=== PATIENT | male | born 1970 | race Hispanic/Latino ===

== ENCOUNTER 2020-08-21 06:55 | Emergency (ER) | payer SELFPAY ==
[~2020-08-21] VITALS: Ht 165.1 cm; Wt 79.0 kg
[2020-08-21 08:04] LABS: HEMATOCRIT 42.3 % (39.0-50.0); HEMOGLOBIN 14.2 g/dl (14.0-18.0); IMMATURE GRANULOCYTES 0.5 % (0.0-5.0); MEAN CELL VOLUME 82.8 fL CALC (80.0-100.0); MEAN CORPUSCULAR HGB 27.8 pG CALC (26.0-32.0); MEAN CORPUSCULAR HGB CONC 33.6 g/dL CAL (32.0-36.0); RED BLOOD COUNT 5.11 mill/uL (4.70-6.10); RED CELL DISTRI WIDTH 13.2 % (11.5-15.5)
[2020-08-21 08:19] LABS: ALBUMIN 4.2 g/dL (3.2-5.0); ALKALINE PHOSPHATASE 64 u/l (38-126); ANION GAP 13 (6-22 (CALC)); BILIRUBIN, TOTAL 0.9 mg/dL (0.0-1.4); BUN 13 mg/dL (9-20); BUN/CREATININE RATIO 15 (12-20 (CALC)); CARBON DIOXIDE 27 mmol/l (22-30); CHLORIDE 98 mmol/l (95-108); CREATININE 0.9 mg/dL (0.7-1.3); GFR > 60 ML/MIN (>=60 (CALC)); GFR FOR AFR.AMER. > 60 ML/MIN (>=60 (CALC)); POTASSIUM 4.1 mmol/l (3.5-5.1); SGOT/AST 51 u/l (17-59); SODIUM 134 mmol/l (137-146); TOTAL PROTEIN 7.1 g/dL (6.3-8.2)
[2020-08-21 09:28] VITALS: BP 151/77
== END 2020-08-21 09:30 | disposition home or self-care (01) | DRG 179 ==
LOC: ED 06:55
PROVIDERS: Family Medicine
DX: U07.1 COVID-19 (principal); R52 Pain, unspecified

== ENCOUNTER 2022-05-31 09:26 | Emergency (ER) | payer SELFPAY ==
[~2022-05-31] VITALS: Ht 165.1 cm; Wt 73.0 kg
[2022-05-31] VITALS (20 sets, daily range): BP systolic 136–161; BP diastolic 82–96
[2022-05-31] MEDS ORDERED: PROTONIX40 M2 PO (09:45)
[2022-05-31] MEDS ORDERED: MITIGARE0.6 MG PO (09:45)
[2022-05-31] MEDS ORDERED: IBUPROFEN600 MG PO (09:46)
[2022-05-31 10:08] LABS: HEMATOCRIT 47.7 % (39.0-50.0); IMMATURE GRANULOCYTES 0.3 % (0.0-5.0); MEAN CELL VOLUME 86.4 fL CALC (80.0-100.0); MEAN CORPUSCULAR HGB 29.9 pG CALC (26.0-32.0); MEAN CORPUSCULAR HGB CONC 34.6 g/dL CAL (32.0-36.0); NEUT# 8.59 thou/uL (1.82-7.42); RED BLOOD COUNT 5.52 mill/uL (4.70-6.10); RED CELL DISTRI WIDTH 13.8 % (11.5-15.5)
[2022-05-31 10:12] LABS: HEMOGLOBIN 16.5 g/dl (14.0-18.0)
[2022-05-31 10:18] LABS: ALBUMIN 4.8 g/dL (3.2-5.0); ALKALINE PHOSPHATASE 66 u/l (38-126); ANION GAP 14 (6-22 (CALC)); BILIRUBIN, TOTAL 0.6 mg/dL (0.0-1.4); BUN 11 mg/dL (9-20); BUN/CREATININE RATIO 13 (12-20 (CALC)); CARBON DIOXIDE 25 mmol/l (22-30); CHLORIDE 104 mmol/l (95-108); CREATININE 0.9 mg/dL (0.7-1.3); GFR FOR AFR.AMER. > 60 ML/MIN (>=60 (CALC)); GFR OTHER RACES > 60 ML/MIN (>=60 (CALC)); POTASSIUM 4.1 mmol/l (3.5-5.1); SGOT/AST 43 u/l (17-59); SODIUM 139 mmol/l (137-146); TOTAL PROTEIN 7.6 g/dL (6.3-8.2)
== END 2022-05-31 14:45 | disposition home or self-care (01) | DRG 313 ==
LOC: ED 09:26
PROVIDERS: Family Medicine
DX: R07.9 Chest pain, unspecified (principal); Z86.19 Personal history of other infectious and parasitic diseases

== ENCOUNTER 2022-08-10 21:08 | Emergency (ER) | payer SELFPAY ==
[~2022-08-10] VITALS: Ht 170.2 cm; Wt 70.3 kg
[~2022-08-10 21:08] MED LIST: IBUPROFEN600 MG PO; MITIGARE0.6 MG PO; PROTONIX40 M2 PO
[2022-08-10] MEDS ORDERED: KEFLEX500 MG PO (21:27)
[2022-08-10 21:42] VITALS: BP 140/82
== END 2022-08-10 21:46 | disposition home or self-care (01) | DRG 605 ==
LOC: ED 21:08
DX: S61.201A Unspecified open wound of left index finger without damage to nail, initial encounter (principal); W01.10XA Fall on same level from slipping, tripping and stumbling with subsequent striking against unspecified object, initial encounter; I10 Essential (primary) hypertension; K21.9 Gastro-esophageal reflux disease without esophagitis